=== PATIENT | male | born 1945 | race Caucasian/White ===

== ENCOUNTER 2020-05-27 19:59 | Inpatient (IN) ==
[2020-05-27] MEDS ORDERED: Ondansetron ODT 4 MG TAB.RAPDIS PO PRN (22:06)
[2020-05-27] MEDS: Ipratropium 1 PUFF INHALER IH SCH (23:53)
[2020-05-28] MEDS: Ipratropium 1 PUFF INHALER IH SCH ×5 (03:31→20:21)
[2020-05-28] MEDS ORDERED: dexAMETHasone 4 MG TABLET PO SCH (09:00)
[2020-05-28] MEDS: Divalproex (24 HR) 500 MG TABLET PO SCH (09:32)
[2020-05-28] MEDS: lisinopriL 20 MG TABLET PO SCH (09:33)
[2020-05-28] MEDS: Spironolactone 25 MG TABLET PO SCH (09:33)
[2020-05-28] MEDS: atenoloL 50 MG TABLET PO SCH (09:33)
[2020-05-28] MEDS: Furosemide 40 MG TABLET PO SCH (09:33)
[2020-05-28] MEDS ORDERED: cefTRIAXone 1,000 MG in Water for inj. (sterile) 10 ML IVP SCH (23:01)
[2020-05-28] MEDS ORDERED: Azithromycin 250 MG TABLET PO SCH (23:15)
[2020-05-29] MEDS: Ipratropium 1 PUFF INHALER IH SCH ×7 (00:04→22:50)
[2020-05-29] MEDS: *HR* Enoxaparin 40 MG/0.4 ML SYRINGE SQ SCH (04:00)
[2020-05-29] MEDS: cefTRIAXone 1,000 MG in Water for inj. (sterile) 10 ML IVP SCH (04:01)
[2020-05-29] MEDS: Azithromycin 250 MG TABLET PO SCH (04:02)
[2020-05-29 06:40] LABS: Hematocrit 38.5 % (37.5-50.1); Hemoglobin 12.6 g/dL (12.9-16.9); Mean Corpuscular HGB Conc 32.7 g/dL (31.6-35.5); Mean Corpuscular Hemoglobin 30.2 pg (28.0-33.3); Mean Corpuscular Volume 92.3 fL (83.0-100.0); Mean Platelet Volume 9.3 fL (9.4-12.4); Platelet Count 403 K/mcL (140-400); Red Blood Count 4.17 M/mcL (4.19-5.50); Red Cell Distribution Width 13.2 % (11.5-14.5); White Blood Count 8.3 K/mcL (4.3-11.1)
[2020-05-29 06:52] LABS: Alanine Aminotransferase 102 Units/L (7-52); Albumin/Globulin Ratio 0.9 (1.1-2.2); Alkaline Phosphatase 35 Units/L (34-104); Aspartate Amino Transferase 70 Units/L (13-39); BUN/Creatinine Ratio 25 (6-26); Bilirubin,Total 0.3 mg/dL (0.3-1.0); Blood Urea Nitrogen 31 mg/dL (8-23); Calcium 8.7 mg/dL (8.6-10.3); Carbon Dioxide 29 mEq/L (23-29); Chloride 101 mEq/L (98-107); Globulin 3.5 g/dL (2.4-3.5); Glucose 162 mg/dL (70-105); Magnesium 1.9 mg/dL (1.6-2.6); Osmolality,Calculated 298 (280-300); Potassium 3.6 mEq/L (3.5-5.1); Sodium 139 mEq/L (136-145); Total Protein 6.5 g/dL (6.4-8.9); eGFR For African Americans > 60 (> 60); eGFR For Non-African Americans 58 (> 60)
[2020-05-29 08:21] LABS: Ferritin 1345 ng/mL (20-250)
[2020-05-29 09:00] LABS: C-Reactive Protein 11 mg/L (Less than 10)
[2020-05-29] MEDS: Divalproex (24 HR) 500 MG TABLET PO SCH (09:16)
[2020-05-29] MEDS: lisinopriL 20 MG TABLET PO SCH (09:16)
[2020-05-29] MEDS: atenoloL 50 MG TABLET PO SCH (09:16)
[2020-05-29] MEDS: Furosemide 40 MG TABLET PO SCH (09:17)
[2020-05-29] MEDS: Dexamethasone Sodium Phos/PF 10 MG/ML VIAL IVP SCH (09:17)
[2020-05-29] MEDS: Spironolactone 25 MG TABLET PO SCH (09:28)
[2020-05-30] MEDS: Ipratropium 1 PUFF INHALER IH SCH ×5 (03:02→20:29)
[2020-05-30] MEDS: *HR* Enoxaparin 40 MG/0.4 ML SYRINGE SQ SCH (04:52)
[2020-05-30 05:57] LABS: Mean Corpuscular HGB Conc 32.4 g/dL (31.6-35.5); Mean Corpuscular Volume 92.5 fL (83.0-100.0); Mean Platelet Volume 9.3 fL (9.4-12.4); Platelet Count 390 K/mcL (140-400); Red Cell Distribution Width 13.2 % (11.5-14.5)
[2020-05-30 06:18] LABS: BUN/Creatinine Ratio 30 (6-26); Blood Urea Nitrogen 32 mg/dL (8-23); Calcium 8.6 mg/dL (8.6-10.3); Carbon Dioxide 29 mEq/L (23-29); Chloride 103 mEq/L (98-107); Glucose 161 mg/dL (70-105); Osmolality,Calculated 296 (280-300); Potassium 3.4 mEq/L (3.5-5.1); Sodium 138 mEq/L (136-145); eGFR For African Americans > 60 (> 60); eGFR For Non-African Americans > 60 (> 60)
[2020-05-30] MEDS: atenoloL 50 MG TABLET PO SCH (10:27)
[2020-05-30] MEDS: Divalproex (24 HR) 500 MG TABLET PO SCH (10:27)
[2020-05-30] MEDS: Spironolactone 25 MG TABLET PO SCH (10:27)
[2020-05-30] MEDS: Furosemide 40 MG TABLET PO SCH (10:27)
[2020-05-30] MEDS: lisinopriL 20 MG TABLET PO SCH (10:27)
[2020-05-30] MEDS: Dexamethasone Sodium Phos/PF 10 MG/ML VIAL IVP SCH (10:28)
[2020-05-30] MEDS: Azithromycin 250 MG TABLET PO SCH (10:43)
[2020-05-30] MEDS: cefTRIAXone 1,000 MG in Water for inj. (sterile) 10 ML IVP SCH (10:44)
[2020-05-30] MEDS: Nystatin SUSP 5 ML UD.LIQ PO SCH ×2 (15:51→21:45)
[2020-05-30] MEDS: Fluconazole 100 MG TABLET PO SCH (15:51)
[2020-05-30] MEDS: Nystatin POWDER 30 GM BOTTLE TP SCH ×2 (17:04→21:45)
[2020-05-31] MEDS: Ipratropium 1 PUFF INHALER IH SCH ×4 (04:08→13:19)
[2020-05-31] MEDS: *HR* Enoxaparin 40 MG/0.4 ML SYRINGE SQ SCH (05:14)
[2020-05-31 05:24] LABS: Hematocrit 37.7 % (37.5-50.1); Hemoglobin 12.1 g/dL (12.9-16.9); Mean Corpuscular HGB Conc 32.1 g/dL (31.6-35.5); Mean Corpuscular Volume 93.3 fL (83.0-100.0); Mean Platelet Volume 9.5 fL (9.4-12.4); Platelet Count 394 K/mcL (140-400); Red Blood Count 4.04 M/mcL (4.19-5.50); Red Cell Distribution Width 13.2 % (11.5-14.5); White Blood Count 8.9 K/mcL (4.3-11.1)
[2020-05-31 05:41] LABS: Alanine Aminotransferase 115 Units/L (7-52); Albumin 2.7 g/dL (3.5-5.7); Albumin/Globulin Ratio 0.9 (1.1-2.2); Alkaline Phosphatase 35 Units/L (34-104); Aspartate Amino Transferase 39 Units/L (13-39); BUN/Creatinine Ratio 28 (6-26); Bilirubin,Total 0.3 mg/dL (0.3-1.0); Blood Urea Nitrogen 30 mg/dL (8-23); Calcium 8.1 mg/dL (8.6-10.3); Carbon Dioxide 28 mEq/L (23-29); Chloride 103 mEq/L (98-107); Globulin 3.1 g/dL (2.4-3.5); Glucose 180 mg/dL (70-105); Magnesium 1.7 mg/dL (1.6-2.6); Osmolality,Calculated 299 (280-300); Sodium 139 mEq/L (136-145); Total Protein 5.8 g/dL (6.4-8.9); eGFR For African Americans > 60 (> 60); eGFR For Non-African Americans > 60 (> 60)
[2020-05-31] MEDS: Furosemide 40 MG TABLET PO SCH (11:08)
[2020-05-31] MEDS: lisinopriL 20 MG TABLET PO SCH (11:08)
[2020-05-31] MEDS: Spironolactone 25 MG TABLET PO SCH (11:08)
[2020-05-31] MEDS: atenoloL 50 MG TABLET PO SCH (11:08)
[2020-05-31] MEDS: Fluconazole 100 MG TABLET PO SCH (11:08)
[2020-05-31] MEDS: Dexamethasone Sodium Phos/PF 10 MG/ML VIAL IVP SCH (11:11)
[2020-05-31] MEDS: Divalproex (24 HR) 500 MG TABLET PO SCH (11:11)
[2020-05-31] MEDS: Nystatin POWDER 30 GM BOTTLE TP SCH ×2 (11:13→21:05)
[2020-05-31] MEDS: Nystatin SUSP 5 ML UD.LIQ PO SCH ×4 (11:13→21:05)
[2020-05-31] MEDS ORDERED: Ipratropium 1 PUFF INHALER IH PRN (13:18)
[2020-05-31 13:45] LABS: C-Reactive Protein 7 mg/L (Less than 10)
[2020-06-01] MEDS: *HR* Enoxaparin 40 MG/0.4 ML SYRINGE SQ SCH (05:09)
[2020-06-01] MEDS: atenoloL 50 MG TABLET PO SCH (09:02)
[2020-06-01] MEDS: Fluconazole 100 MG TABLET PO SCH (09:03)
[2020-06-01] MEDS: Dexamethasone Sodium Phos/PF 10 MG/ML VIAL IVP SCH (09:03)
[2020-06-01] MEDS: Nystatin SUSP 5 ML UD.LIQ PO SCH ×4 (09:03→21:21)
[2020-06-01] MEDS: Divalproex (24 HR) 500 MG TABLET PO SCH (09:03)
[2020-06-01] MEDS: Spironolactone 25 MG TABLET PO SCH (09:03)
[2020-06-01] MEDS: Nystatin POWDER 30 GM BOTTLE TP SCH ×2 (09:04→21:21)
[2020-06-01] MEDS: lisinopriL 20 MG TABLET PO SCH (09:04)
[2020-06-01] MEDS: Furosemide 40 MG TABLET PO SCH (09:04)
[2020-06-01] MEDS: Nystatin Ointment 15 GM TUBE TP SCH ×3 (12:40→21:21)
[2020-06-02] MEDS: *HR* Enoxaparin 40 MG/0.4 ML SYRINGE SQ SCH (05:18)
[2020-06-02] MEDS: Fluconazole 100 MG TABLET PO SCH (09:56)
[2020-06-02] MEDS: Nystatin SUSP 5 ML UD.LIQ PO SCH ×4 (09:56→21:23)
[2020-06-02] MEDS: Furosemide 40 MG TABLET PO SCH (09:57)
[2020-06-02] MEDS: Spironolactone 25 MG TABLET PO SCH (09:57)
[2020-06-02] MEDS: Nystatin Ointment 15 GM TUBE TP SCH ×4 (10:01→21:23)
[2020-06-02] MEDS: atenoloL 50 MG TABLET PO SCH (10:01)
[2020-06-02] MEDS: Nystatin POWDER 30 GM BOTTLE TP SCH ×2 (10:01→21:23)
[2020-06-02] MEDS: Divalproex (24 HR) 500 MG TABLET PO SCH (10:01)
[2020-06-02] MEDS: Dexamethasone Sodium Phos/PF 10 MG/ML VIAL IVP SCH (10:01)
[2020-06-02] MEDS: lisinopriL 20 MG TABLET PO SCH (10:01)
[2020-06-03] MEDS: *HR* Enoxaparin 40 MG/0.4 ML SYRINGE SQ SCH (05:30)
[2020-06-03 06:26] LABS: Hematocrit 41.8 % (37.5-50.1); Hemoglobin 13.4 g/dL (12.9-16.9); Mean Corpuscular HGB Conc 32.1 g/dL (31.6-35.5); Mean Corpuscular Hemoglobin 30.1 pg (28.0-33.3); Mean Corpuscular Volume 93.9 fL (83.0-100.0); Mean Platelet Volume 9.3 fL (9.4-12.4); Platelet Count 366 K/mcL (140-400); Red Blood Count 4.45 M/mcL (4.19-5.50); Red Cell Distribution Width 13.3 % (11.5-14.5); White Blood Count 10.6 K/mcL (4.3-11.1)
[2020-06-03 06:41] LABS: Alanine Aminotransferase 82 Units/L (7-52); Albumin 2.9 g/dL (3.5-5.7); Albumin/Globulin Ratio 0.9 (1.1-2.2); Alkaline Phosphatase 44 Units/L (34-104); Aspartate Amino Transferase 19 Units/L (13-39); BUN/Creatinine Ratio 30 (6-26); Bilirubin,Total 0.4 mg/dL (0.3-1.0); Blood Urea Nitrogen 35 mg/dL (8-23); Calcium 8.8 mg/dL (8.6-10.3); Carbon Dioxide 34 mEq/L (23-29); Chloride 96 mEq/L (98-107); Globulin 3.3 g/dL (2.4-3.5); Glucose 212 mg/dL (70-105); Magnesium 1.9 mg/dL (1.6-2.6); Osmolality,Calculated 294 (280-300); Potassium 4.8 mEq/L (3.5-5.1); Sodium 135 mEq/L (136-145); Total Protein 6.2 g/dL (6.4-8.9); eGFR For African Americans > 60 (> 60); eGFR For Non-African Americans > 60 (> 60)
[2020-06-03 08:43] VITALS: BP 142/83
[2020-06-03] MEDS: Furosemide 40 MG TABLET PO SCH (10:40)
[2020-06-03] MEDS: atenoloL 50 MG TABLET PO SCH (10:40)
[2020-06-03] MEDS: Nystatin Ointment 15 GM TUBE TP SCH ×2 (10:41→15:29)
[2020-06-03] MEDS: Spironolactone 25 MG TABLET PO SCH (10:41)
[2020-06-03] MEDS: Nystatin POWDER 30 GM BOTTLE TP SCH (10:41)
[2020-06-03] MEDS: Dexamethasone Sodium Phos/PF 10 MG/ML VIAL IVP SCH (10:41)
[2020-06-03] MEDS: Divalproex (24 HR) 500 MG TABLET PO SCH (10:41)
[2020-06-03] MEDS: lisinopriL 20 MG TABLET PO SCH (10:41)
[2020-06-03] MEDS: Nystatin SUSP 5 ML UD.LIQ PO SCH ×2 (10:41→15:29)
[2020-06-03 14:59] LABS: C-Reactive Protein < 5 mg/L (Less than 10)
[2020-06-03 15:14] LABS: Ferritin 1009 ng/mL (20-250)
== END 2020-06-03 16:45 | disposition other institution (70) | DRG 177 ==
LOC: INPGRE 20:25
PROVIDERS: ADMIT Family Medicine; ATTEND Family Medicine

== ENCOUNTER 2020-06-03 14:21 | Inpatient (IN) ==
[2020-06-03] MEDS ORDERED: Ondansetron ODT 4 MG TAB.RAPDIS PO PRN (17:05)
[2020-06-03] MEDS: Ipratropium 1 PUFF INHALER IH SCH (21:01)
[2020-06-03] MEDS: Nystatin SUSP 5 ML UD.LIQ PO SCH (22:06)
[2020-06-03] MEDS: Nystatin POWDER 30 GM BOTTLE TP SCH (22:06)
[2020-06-03] MEDS: Nystatin Ointment 15 GM TUBE TP SCH (22:06)
[2020-06-04] MEDS: Ipratropium 1 PUFF INHALER IH SCH ×4 (04:04→12:52)
[2020-06-04] MEDS: *HR* Enoxaparin 40 MG/0.4 ML SYRINGE SQ SCH (06:27)
[2020-06-04] MEDS ORDERED: dexAMETHasone 4 MG TABLET PO SCH (09:00)
[2020-06-04] MEDS: Nystatin SUSP 5 ML UD.LIQ PO SCH ×4 (09:19→20:17)
[2020-06-04] MEDS: Divalproex (24 HR) 500 MG TABLET PO SCH (09:19)
[2020-06-04] MEDS: atenoloL 50 MG TABLET PO SCH (09:19)
[2020-06-04] MEDS: Spironolactone 25 MG TABLET PO SCH (09:19)
[2020-06-04] MEDS: Furosemide 40 MG TABLET PO SCH (09:19)
[2020-06-04] MEDS: Nystatin POWDER 30 GM BOTTLE TP SCH ×2 (09:20→20:18)
[2020-06-04] MEDS: lisinopriL 20 MG TABLET PO SCH (09:20)
[2020-06-04] MEDS: Nystatin Ointment 15 GM TUBE TP SCH ×4 (09:20→20:17)
[2020-06-04] MEDS ORDERED: Ipratropium 1 PUFF INHALER IH PRN (12:53)
[2020-06-05] MEDS: *HR* Enoxaparin 40 MG/0.4 ML SYRINGE SQ SCH (05:07)
[2020-06-05 06:20] LABS: Hematocrit 40.1 % (37.5-50.1); Hemoglobin 12.9 g/dL (12.9-16.9); Mean Corpuscular HGB Conc 32.2 g/dL (31.6-35.5); Mean Corpuscular Hemoglobin 29.8 pg (28.0-33.3); Mean Corpuscular Volume 92.6 fL (83.0-100.0); Mean Platelet Volume 10.1 fL (9.4-12.4); Platelet Count 335 K/mcL (140-400); Red Blood Count 4.33 M/mcL (4.19-5.50); Red Cell Distribution Width 13.5 % (11.5-14.5); White Blood Count 10.2 K/mcL (4.3-11.1)
[2020-06-05 06:38] LABS: Alanine Aminotransferase 67 Units/L (7-52); Alkaline Phosphatase 42 Units/L (34-104); Aspartate Amino Transferase 18 Units/L (13-39); BUN/Creatinine Ratio 36 (6-26); Bilirubin,Total 0.4 mg/dL (0.3-1.0); Blood Urea Nitrogen 48 mg/dL (8-23); Calcium 8.6 mg/dL (8.6-10.3); Carbon Dioxide 29 mEq/L (23-29); Chloride 97 mEq/L (98-107); Glucose 244 mg/dL (70-105); Magnesium 2.1 mg/dL (1.6-2.6); Osmolality,Calculated 295 (280-300); Potassium 4.9 mEq/L (3.5-5.1); Sodium 132 mEq/L (136-145); eGFR For African Americans > 60 (> 60); eGFR For Non-African Americans 52 (> 60)
[2020-06-05 08:48] LABS: Ferritin 1394 ng/mL (20-250)
[2020-06-05] MEDS: Nystatin SUSP 5 ML UD.LIQ PO SCH ×5 (08:57→20:23)
[2020-06-05] MEDS: Divalproex (24 HR) 500 MG TABLET PO SCH (09:01)
[2020-06-05] MEDS: atenoloL 50 MG TABLET PO SCH (09:01)
[2020-06-05] MEDS: lisinopriL 20 MG TABLET PO SCH (09:01)
[2020-06-05] MEDS: Spironolactone 25 MG TABLET PO SCH (09:02)
[2020-06-05] MEDS: Nystatin Ointment 15 GM TUBE TP SCH ×4 (09:02→20:23)
[2020-06-05] MEDS: Nystatin POWDER 30 GM BOTTLE TP SCH ×2 (09:02→20:24)
[2020-06-05] MEDS: dexAMETHasone 4 MG TABLET PO SCH (09:02)
[2020-06-05] MEDS: Furosemide 40 MG TABLET PO SCH (09:02)
[2020-06-06] MEDS: *HR* Enoxaparin 40 MG/0.4 ML SYRINGE SQ SCH (05:46)
[2020-06-06] MEDS: atenoloL 50 MG TABLET PO SCH (10:40)
[2020-06-06] MEDS: Furosemide 40 MG TABLET PO SCH (10:40)
[2020-06-06] MEDS: Divalproex (24 HR) 500 MG TABLET PO SCH (10:40)
[2020-06-06] MEDS: dexAMETHasone 4 MG TABLET PO SCH (10:40)
[2020-06-06] MEDS: Spironolactone 25 MG TABLET PO SCH (10:41)
[2020-06-06] MEDS: Nystatin Ointment 15 GM TUBE TP SCH ×4 (10:41→20:57)
[2020-06-06] MEDS: Nystatin POWDER 30 GM BOTTLE TP SCH ×2 (10:41→20:58)
[2020-06-06] MEDS: lisinopriL 20 MG TABLET PO SCH (10:41)
[2020-06-06] MEDS: Nystatin SUSP 5 ML UD.LIQ PO SCH ×4 (10:41→20:57)
[2020-06-07] MEDS: *HR* Enoxaparin 40 MG/0.4 ML SYRINGE SQ SCH (05:47)
[2020-06-07 07:42] VITALS: BP 119/86
[2020-06-07] MEDS: Nystatin Ointment 15 GM TUBE TP SCH (10:28)
[2020-06-07] MEDS: Nystatin SUSP 5 ML UD.LIQ PO SCH (10:28)
[2020-06-07] MEDS: lisinopriL 20 MG TABLET PO SCH (10:28)
[2020-06-07] MEDS: dexAMETHasone 4 MG TABLET PO SCH (10:28)
[2020-06-07] MEDS: Divalproex (24 HR) 500 MG TABLET PO SCH (10:28)
[2020-06-07] MEDS: Furosemide 40 MG TABLET PO SCH (10:28)
[2020-06-07] MEDS: Spironolactone 25 MG TABLET PO SCH (10:28)
[2020-06-07] MEDS: Nystatin POWDER 30 GM BOTTLE TP SCH (10:28)
[2020-06-07] MEDS: atenoloL 50 MG TABLET PO SCH (10:28)
== END 2020-06-07 13:12 | DRG 177 ==
LOC: INPGRE 16:29
PROVIDERS: ADMIT Family Medicine; ATTEND Family Medicine